=== PATIENT | female | born 1955 | race Caucasian/White ===

== ENCOUNTER 2019-06-23 12:02 | Emergency (ER) | payer OTHER ==
[~2019-06-23] VITALS: Ht 160 cm; Wt 61.0 kg
--- NOTE | 2019-06-23 12:14 | NUR ---
PT AMBULATED TO THE ROOM W/ A STEADY GAIT.
[2019-06-23 12:46] LABS: MICROSCOPIC NOT IND
[2019-06-23 12:49] LABS: BASOPHILS # (AUTO) 0.01 x10^3/uL (0-0.1); BASOPHILS % (AUTO) 0 % (0-1); EOSINOPHILS # (AUTO) 0.03 x10^3/uL (0-0.4); EOSINOPHILS % (AUTO) 0 % (1-7); LYMPHOCYTES # (AUTO) 0.73 x10^3/uL (1-3.4); LYMPHOCYTES % (AUTO) 7 % (22-44); MD NO; MEAN CORPUSCULAR HEMOGLOBIN 33.5 pg (27.0-34.8); MEAN CORPUSCULAR HGB CONC 33.1 g/dL (32.4-35.8); MEAN CORPUSCULAR VOLUME 101.2 fL (80-100); MEAN PLATELET VOLUME 11.3 fL (7.4-10.4); MONOCYTES # (AUTO) 0.98 x10^3/uL (0.2-0.8); MONOCYTES % (AUTO) 9 % (2-9); NEUTROPHILS % (AUTO) 84 % (42-75); PLATELET COUNT 125 x10^3/uL (130-400); RED BLOOD COUNT 4.51 x10^6/uL (3.82-5.3); RED CELL DISTRIBUTION WIDTH 13.3 % (9.6-15.2)
[2019-06-23] MEDS ORDERED: SODIUM CHLORIDE FLUSH 10ML SYR IVF ONE (13:00)
--- NOTE | 2019-06-23 13:00 | NUR ---
THIS IS A 63 YO F W/ C/O LLQ PAIN THAT STARTED LAST NIGHT. PT REPORTS PAIN KEPT HER AWAKE. PAIN NOW 06/15. DENIES N/V/D/PAIN W/ URINATION. PT TACHYCARDIC, OTHER VS WDL. PT RESTING ON GURNEY W/ CALL LIGHT IN REACH. CONNECTED TO MONITORING.
[2019-06-23 13:01] LABS: ALANINE AMINOTRANSFERASE 18 U/L (12-78); ALBUMIN 3.6 g/dL (3.4-5.0); ANION GAP 6 mmol/L (5-15); CALCIUM 8.8 mg/dL (8.5-10.1); CHLORIDE 103 mmol/L (98-107); CREATININE 0.93 mg/dL (0.55-1.02)
[2019-06-23 13:03] LABS: ALKALINE PHOSPHATASE 74 U/L (45-117); BILIRUBIN,TOTAL 1.9 mg/dL (0.2-1.0); TOTAL PROTEIN 7.3 g/dL (6.4-8.2)
--- NOTE | 2019-06-23 13:36 | NUR ---
PIV STARTED. PT RESTING ON [place] W/ CALL LIGHT IN REACH. AWAITING CT.
[2019-06-23] MEDS ORDERED: OMNIPAQUE 350 MG/ML, 100ML BOTTLE ONE (14:59)
--- NOTE | 2019-06-23 15:05 | NUR ---
Break RN: assumed care of pt on behalf of primary RN for lunch break only. pt has returned from CT scan. resting in position of comfort. no apparent distress. no family at bedside
--- NOTE | 2019-06-23 15:34 | NUR ---
ALL TESTS RESULTED. PT IS UP FOR RECHECK AT THIS TIME.
[2019-06-23] MEDS ORDERED: METRONIDAZOLE PMX 500MG/100ML 100 ML ONE (16:00)
[2019-06-23] MEDS ORDERED: METRONIDAZOLE PMX 500MG/100ML 100 ML IVPB ONE (16:00)
[2019-06-23] MEDS ORDERED: CIPROFLOXACIN 500 MG TABLET PO ONE (16:00)
[2019-06-23] MEDS ORDERED: CIPROFLOXACIN 500 MG TABLET ONE (16:00)
[2019-06-23 16:06] VITALS: BP 130/62
--- NOTE | 2019-06-23 17:15 | NUR ---
Patient given discharge instructions and they have confirmed that they understand the instructions. Patient ambulatory with steady gait.
== END 2019-06-23 17:16 | disposition home or self-care (01) ==
LOC: ED 13:11
DX: K57.32 Diverticulitis of large intestine without perforation or abscess without bleeding (principal); R10.32 Left lower quadrant pain
CPT/HCPCS: 36415; 74177; 80053; 81003; 83605; 83690; 85025; 96365; 99285; Q9967